=== PATIENT | female | born 1975 | race Caucasian/White ===

== ENCOUNTER 2017-08-08 09:29 | Day surgery (SDC) | payer OTHER ==
[2017-08-02 16:11] VITALS: BMI 20.7
[2017-08-08] MEDS ORDERED: oxyCODONE HCL 10 MG SUSTAINED ACTING TABLET PO STA (09:40)
[2017-08-08] MEDS ORDERED: oxyCODONE HCL 5 MG TABLET ONE ×2 (13:39→19:11)
[2017-08-08] MEDS ORDERED: MIDAZOLAM HCL 2 MG/2 ML SINGLE DOSE VIAL ONE (14:40)
[2017-08-08] MEDS ORDERED: methylPREDNISolone ACET (DEPO) 40 MG/1 ML VIAL ONE (14:59)
[2017-08-08] MEDS ORDERED: LIDOCAINE 1%/EPI 1:100000 (20 ML MULTI DOSE VIAL) ONE (14:59)
[2017-08-08] MEDS ORDERED: THROMBIN (BOVINE) 5,000 UNIT VIAL TP ONE ×2 (14:59→16:20)
[2017-08-08] MEDS ORDERED: BUPIVACAINE HCL 0.25% 125 MG/50 ML VIAL ONE (14:59)
[2017-08-08] MEDS ORDERED: BUPIVACAINE HCL/PF (5 MG/ML) 30 ML VIAL IJ ONE (15:05)
--- NOTE | 2017-08-08 15:13 | HP ---
History & Physical Update - History History: No Change - Physical Physical: No Change - Assessment Assessment: No Change - Plan Plan: No Change (Initial H&P is complete and located in patient's paper chart. No new complaints or medications.)
[2017-08-08] MEDS ORDERED: PROPOFOL 20 ML ONE ×2 (15:54→16:11)
[2017-08-08] MEDS ORDERED: ceFAZolin SODIUM 1 GM VIAL ONE (16:03)
[2017-08-08] MEDS ORDERED: methylPREDNISolone ACET (DEPO) 40 MG/1 ML VIAL IM ONE (16:22)
[2017-08-08] MEDS ORDERED: BUPIVACAINE HCL/PF 0.25% (2.5MG/ML) 10 ML VIAL IJ ONE (16:49)
[2017-08-08] MEDS ORDERED: oxyCODONE HCL 5 MG TABLET PO PRN (17:14)
[2017-08-08] MEDS ORDERED: ACETAMINOPHEN 325 MG TABLET (FP) PO PRN (17:14)
[2017-08-08] MEDS ORDERED: ONDANSETRON 4 MG/2 ML VIAL IVPUSH PRN (17:14)
[2017-08-08] MEDS ORDERED: LACTATED RINGERS SOLUTION 1,000 ML IV SCH (17:15)
--- NOTE | 2017-08-08 17:15 | OP ---
Operative Note - Note: Operative Date: 08/08/17 Pre-Operative Diagnosis: L5/S1 disc herniation. Radiculopathy Operation: L5/S1 laminectomy (right laminectomy, discectomy) Post-Operative Diagnosis: Same as Pre-op Surgeon: Shailesh Alfredo [employer] Consultant: Lee Grady Anesthesiologist/ROUND BONER: Abby Calix Anesthesia: Spinal Specimens Removed: L5/S1 disc Estimated Blood Loss (mls): 10 Fluid Volume Replaced (mls): 900 (LR) Operative Report Dictated: Yes
--- NOTE | 2017-08-08 17:16 | SURG ---
Surgery Astronomy Professor Note Astronomy Professor: Shailesh Alfredo PA-C Date of Service: 08/08/17 Diagnosis: L5/S1 disc herniation. Radiculopathy Procedure: L5/S1 right laminectomy with discectomy I was present for the entirety of the operative procedure. For further detail, please refer to operative report. Visit type - Case Type Case Type: Scheduled Admission - New patient This patient is new to me today: Yes Date on this admission: 08/08/17
[2017-08-08 19:43] VITALS: BP 110/66; PULSE 71; TEMP 98
--- NOTE | 2017-08-12 15:29 | PATH ---
Surgical Pathology Report Patient Name: RAMILA FERMIN Med. Rec. #: [id number] /Age/Gender: 1975 (Age: 42) / F Account: [id number] Location: [facility] AM[facility] Taken: 08/08/2017 Received: 08/08/2017 Reported: 08/12/2017 Physicians: Lee Grady M.D. Specimen(s) Received L5-SI DISC Clinical History Spinal stenosis Final Diagnosis L5-S1 DISC, LAMINECTOMY: CARTILAGE WITH DEGENERATIVE CHANGES. Electronically Signed Natalya Ojeda M.D. Gross Description Received in formalin, labeled "L5-S1 disc" of four portions of mariano-macias fibrocartilaginous tissue ranging from 0.6-1.2 cm in greatest dimension. Entirely submitted one cassette. ebram/08/09/2017
== END 2017-08-08 19:43 | disposition home or self-care (01) ==
LOC: FASU 09:29
PROVIDERS: ATTEND Orthopaedic Surgery Orthopaedic Surgery of the Spine
PROC: 01NB0ZZ Release Lumbar Nerve, Open Approach (ICD-10-PCS; principal; 2017-08-08 16:09)
DX: M48.07 Spinal stenosis, lumbosacral region (principal)
CPT/HCPCS: 72100-TC-FY; 76000-TC-FY; 84703; 88304-TC; 94760

== ENCOUNTER 2018-01-30 11:10 | Day surgery (SDC) | payer OTHER ==
[2018-01-27 08:49] VITALS: BMI 21.6
--- NOTE | 2018-01-30 07:19 | HP ---
History & Physical Update - History History: No Change (H&P completed by PCP Dr Sreedhar Adan on 01/21.) - Physical Physical: No Change - Assessment Assessment: No Change - Plan Plan: No Change
[2018-01-30] MEDS ORDERED: oxyCODONE HCL 10 MG SUSTAINED ACTING TABLET PO STA (11:18)
[2018-01-30] MEDS ORDERED: methylPREDNISolone ACET (DEPO) 40 MG/1 ML VIAL ONE (11:31)
[2018-01-30] MEDS ORDERED: THROMBIN (BOVINE) 5,000 UNIT VIAL TP ONE ×3 (11:31→13:31)
[2018-01-30] MEDS ORDERED: LIDOCAINE 1%/EPI 1:100000 (20 ML MULTI DOSE VIAL) ONE (11:31)
[2018-01-30] MEDS ORDERED: DEXAMETHASONE SOD PHOSPHATE/PF 10 MG/ML SDV ONE (11:57)
[2018-01-30] MEDS ORDERED: MIDAZOLAM HCL 2 MG/2 ML SINGLE DOSE VIAL ONE ×2 (11:58→13:00)
[2018-01-30] MEDS ORDERED: BUPIVACAINE HCL/PF (5 MG/ML) 30 ML VIAL IJ ONE (11:58)
[2018-01-30] MEDS ORDERED: DEXAMETHASONE SOD PHOSPHATE 4 MG/1 ML VIAL ONE (12:40)
[2018-01-30] MEDS ORDERED: ceFAZolin SODIUM 1 GM VIAL ONE (12:40)
[2018-01-30] MEDS ORDERED: ONDANSETRON 4 MG/2 ML VIAL ONE (12:40)
[2018-01-30] MEDS ORDERED: LIDOCAINE HCL 1%, 10 MG/ML (20ML VIAL) ONE (13:58)
--- NOTE | 2018-01-30 14:20 | OP ---
Operative Note - Note: Operative Date: 01/30/18 Pre-Operative Diagnosis: L5/S1 herniated disc with radiculopathy Operation: Revision L5/S1 herniated disc Post-Operative Diagnosis: Same as Pre-op Surgeon: Lee Grady Health Professor: Shailesh Alfredo (Second assist HARRISON Jean) Anesthesia: Spinal Specimens Removed: L5/S1 disc Estimated Blood Loss (mls): 30 Fluid Volume Replaced (mls): 1,000 Operative Report Dictated: Yes
--- NOTE | 2018-01-30 14:21 | SURG ---
Surgery Clinical Advisor Note Clinical Advisor: Shailesh Alfredo PA-C Date of Service: 01/30/18 Diagnosis: L5/S1 herniated disc Procedure: L5/S1 revision/discectomy I was present for the entirety of the operative procedure. For further detail, please refer to operative report. Visit type - Case Type Case Type: Scheduled - New patient This patient is new to me today: Yes Date on this admission: 01/30/18
--- NOTE | 2018-01-30 14:53 | OP ---
DATE OF OPERATION: 01/30/2018 PREOPERATIVE DIAGNOSIS: Spinal stenosis L5-S1. POSTOPERATIVE DIAGNOSIS: Spinal stenosis L5-S1. PROCEDURE PERFORMED: Revision laminectomy, neurolysis. SURGEON: Lee Grady MD VIBRATOR EQUIPMENT TESTER: LIANE Maldonado ESTIMATED BLOOD LOSS: 50 mL. IV FLUIDS: Per Anesthesia. ANESTHESIA: Spinal/TLIP. COMPLICATIONS: There were none. DISPOSITION: The patient was brought to the PACU in stable condition. INDICATIONS FOR SURGERY: The patient is a 42-year-old female who has been suffering from pain from her back down her right leg. She had previously undergone a successful laminectomy and had done well from the procedure when she began to have pain again. X-rays and MRI were completed, which noted that she re-herniated at L5-S1. She had undergone epidural injections, and unfortunately, her pain continued to persist despite all this. At this point, risks, benefits, and alternatives were discussed, and the patient consented to surgery. DESCRIPTION OF PROCEDURE: The patient was brought to the operating room by the Anesthesia staff. After appropriate patient identification was performed, spinal anesthesia/TLIP block was given. The patient was able to position herself prone onto the OR table with all areas and bony prominences well padded at this time. Tuohy needle was placed into the back to lana off the L5-S1 segment. X-ray was taken to confirm this was correct. The needle was removed, and 10 mL of lidocaine with epinephrine was injected into the back. At this time, the back was prepped and draped in a sterile manner. At this point, a time-out was completed. An incision was made from the top of L5 down to the bottom of S1. Dissection was carried down to the fascia. Fascia was split open at this time, and appropriate retractor was then placed in. A spinal needle was placed onto the L5 lamina. X-ray was taken to confirm this was correct. Needle was removed. At this point, the microscope was brought in. Dissection was performed around the nerve root. Neurolysis was performed at this time. Portions of the lamina were removed. The nerve root was mobilized medially. Dyskinesia was noted. It was removed at this time. By the time of the procedure, the S1 nerve root appeared to be well decompensated. All bleeding was well controlled at this time. Steri-Strips was placed over the nerve root. FloSeal was placed over that. The fascia was closed with a No. 1 Vicryl suture. The subcutaneous tissue was closed with 2-0 Vicryl suture. The skin was closed with 3-0 Monocryl suture. Dermabond was applied. Steri-Strips were applied. A sterile dressing was applied. The patient was placed supine on the OR bed and brought to the PACU in stable condition. Randell OLIVO/[id number]
[2018-01-30] MEDS ORDERED: oxyCODONE HCL 5 MG TABLET PO PRN ×2 (15:13)
[2018-01-30] MEDS ORDERED: ONDANSETRON 4 MG/2 ML VIAL IVPUSH PRN (15:13)
[2018-01-30] MEDS ORDERED: PROMETHAZINE HCL 25 MG/1 ML VIAL IVPUSH PRN (15:13)
[2018-01-30 15:28] VITALS: TEMP 98.3
[2018-01-30] MEDS ORDERED: oxyCODONE HCL 5 MG TABLET ONE (16:15)
[2018-01-30 16:44] VITALS: BP 106/56; PULSE 75
--- NOTE | 2018-02-05 14:47 | PATH ---
Surgical Pathology Report Patient Name: RAMILA FERMIN [facility]. Rec. #: [id number] /Age/Gender: 1975 (Age: 42) / F Account: [id number] Location: [facility] AMBULATORY Taken: 01/30/2018 Received: 01/30/2018 Reported: 02/05/2018 Physicians: Lee Grady M.D. Specimen(s) Received L5-S1 DISC Clinical History Spinal stenosis Final Diagnosis L5-S1 DISC, LAMINECTOMY: CARTILAGE WITH DEGENERATIVE CHANGES. Electronically Signed Natalya Ojeda M.D. Gross Description Received in formalin labeled "L5-S1 disc," is a 1.0 cm in greatest dimension mariano fragment of fibrocartilaginous tissue. The specimen is submitted in toto in one cassette. 01/31/201801/31/2018
== END 2018-01-30 16:35 | disposition home or self-care (01) ==
LOC: FASU 11:10
PROVIDERS: ATTEND Orthopaedic Surgery Orthopaedic Surgery of the Spine
PROC: 01NB0ZZ Release Lumbar Nerve, Open Approach (ICD-10-PCS; principal; 2018-01-30 13:05)
DX: M48.07 Spinal stenosis, lumbosacral region (principal)
CPT/HCPCS: 72100-TC-FY; 84703; 88304-TC; 94760